=== PATIENT | female | born 1985 | race Two or more races ===

== ENCOUNTER → 2016-09-05 | Outpatient (REF) | payer OTHER ==
[2016-09-05 16:34] LABS: POTASSIUM SERUM 4.2 MEQ/L (3.5-5.1)
== END | disposition home or self-care (01) ==
LOC: M LABDRWLA 15:30
PROVIDERS: ATTEND Nurse Practitioner Family
DX: Z51.81 Encounter for therapeutic drug level monitoring (principal); Z79.899 Other long term (current) drug therapy; L70.0 Acne vulgaris